=== PATIENT | male | born 1940 | race Caucasian/White ===

== ENCOUNTER 2018-08-27 13:36 | Emergency (ER) | payer BC, MEDICARE ==
[2018-08-27] MEDS ORDERED: Diph,Pert(Acell),Tet Vac 0.5 ML SYR IM ONE (14:17)
--- NOTE | 2018-08-27 14:19 | Emergency Department Record ---
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 and some neck pain and billateral knee pain and abrasions and bilaterat hand abrasions and left chest wall pain MD Complaint: Fall Onset/Timin -: Hour(s) Fall From: Standing When Fall Occurred: 1 hour PRIVATE INVESTIGATOR Fall Witnessed: Yes, by family, Yes, by bystander Place Fall Occurred: Street Loss of Consciousness: None Prolonged Down Time?: No Symptoms Prior to Fall: None Severity: Mild Severity scale (1-10): 5 Quality: Aching - [place] Coma Scale Eye Response: (4) Open spontaneously Motor Response: (6) Obeys commands Verbal Response: (5) Oriented [place] Total: 15 - Related Data Home Medications Medication Instructions Recorded Confirmed Last Taken Carbidopa/Levodopa 25Mg/100Mg 1 each PO TID 08/27/18 08/27/18 1 Day Ago [Sinemet] ~08/26/18 Furosemide [Lasix] 40 mg PO BID 08/27/18 08/27/18 1 Day Ago ~08/26/18 Potassium Chloride 10 meq PO BID 08/27/18 08/27/18 1 Day Ago ~08/26/18 Terazosin HCl 2 mg PO DAILY 08/27/18 08/27/18 1 Day Ago ~08/26/18 Allergies Allergy/AdvReac Type Severity Reaction Status Date / Time No Known Drug Allergies Allergy Verified 08/27/18 13:57 Travel Screening - Travel/Exposure Within Last 30 Days Have you traveled within the last 30 days?: No - Travel/Exposure Within Last Year Have you traveled outside the [place] in the last year?: No - Additonal Travel Details Have you been exposed to anyone with a communicable illness?: No - Travel Symptoms Symptom Screening: None Review of Systems Reviewed: No additional complaints except as noted below Constitutional: Reports: As per HPI. Denies: Chills, Fever, Malaise, Night sweats, Weakness, Weight change Eyes: Reports: As per HPI. Denies: Eye discharge, Eye pain, Photophobia, Vision change ENT: Reports: As per HPI. Denies: Congestion, Dental pain, Ear pain, Epistaxis , Hearing loss, Throat pain Respiratory: Reports: As per HPI. Denies: Cough, Dyspnea, Hemoptysis, Stridor, Wheezes Cardiovascular: Reports: As per HPI. Denies: Arrhythmia, Chest pain, Dyspnea on exertion, Edema, Murmurs, Orthopnea, Palpitations, Paroxysmal nocturnal dyspnea, Rheumatic Fever, Syncope Endocrine: Reports: As per HPI. Denies: Fatigue, Heat or cold intolerance, Polydipsia, Polyuria Gastrointestinal: Reports: As per HPI. Denies: Abdominal pain, Constipation, Diarrhea, Hematemesis, Hematochezia, Melena, Nausea, Vomiting Genitourinary: Reports: As per HPI. Denies: Dysuria, Frequency, Hematuria, Incontinence, Retention, Testicular pain, Testicular mass, Urgency Musculoskeletal: Reports: As per HPI, Other (multiple bruisies). Denies: Arthralgia, Back pain, Gout, Joint swelling, Myalgia, Neck pain Skin: Reports: As per HPI. Denies: Bruising, Change in color, Change in hair/ nails, Lesions, Pruritus, Rash Neurological: Reports: As per HPI. Denies: Abnormal gait, Confusion, Headache, Numbness, Paresthesias, Seizure, Tingling, Tremors, Vertigo, Weakness Psychiatric: Reports: As per HPI. Denies: Anxiety, Auditory hallucinations, Depression, Homicidal thoughts, Suicidal thoughts, Visual hallucinations Hematological/Lymphatic: Reports: As per HPI. Denies: Anemia, Blood Clots, Easy bleeding, Easy bruising, Swollen glands Past Medical History - SOCIAL HISTORY Smoking Status: Never smoker Alcohol Use: None Drug Use: None - RESPIRATORY Hx Respiratory Disorders: No - CARDIOVASCULAR Hx Cardio Disorders: Yes Hx Hypertension: Yes - NEURO Hx Neuro Disorders: No - GI Hx GI Disorders: No - Hx Genitourinary Disorders: Yes Hx Kidney Stones: Yes (hx) - ENDOCRINE Hx Endocrine Disorders: No - MUSCULOSKELETAL Hx Musculoskeletal Disorders: No - PSYCH Hx Psych Problems: No - HEMATOLOGY/ONCOLOGY Hx Hematology/Oncology Disorders: No Family Medical History Any Significant Family History?: Yes Hx Heart Disease: Father Hx HTN: Mother Physical Exam - General General Appearance: Alert, Oriented x3, Cooperative, No acute distress - Head Head exam: Other (large hematoma of the left forehead area) - Eye Eye exam: Normal appearance, PERRL Pupils: Normal accommodation - ENT ENT exam: Normal exam, Mucous membranes moist, Normal external ear exam, Normal orophraynx, TM's normal bilaterally Ear exam: Normal external inspection. negative: External canal tenderness Nasal Exam: Normal inspection. negative: Discharge, Sinus tenderness Mouth exam: Normal external inspection, Tongue normal Teeth exam: Normal inspection. negative: Dental caries Throat exam: Normal inspection. negative: Tonsillar erythema, Tonsillar exudate - Neck Neck exam: Normal inspection, Full ROM. negative: Tenderness - Respiratory Respiratory exam: Normal lung sounds bilaterally. negative: Respiratory distress - Cardiovascular Cardiovascular Exam: Regular rate, Normal rhythm, Normal heart sounds - GI/Abdominal GI/Abdominal exam: Soft, Normal bowel sounds. negative: Tenderness - Rectal Rectal exam: Deferred - exam: Deferred - Extremities Extremities exam: Normal inspection, Full ROM, Normal capillary refill, Tenderness (hands abrasions), Other (abrasions of both knees) - Back Back exam: Reports: Normal inspection, Full ROM. Denies: Muscle spasm, Rash noted, Tenderness - Neurological Neurological exam: Alert, Normal gait, Oriented X3, Reflexes normal - Psychiatric Psychiatric exam: Normal affect, Normal mood - Skin Skin exam: Dry, Intact, Normal color, Warm Course Vital Signs 08/27/18 13:49 Temperature 97.4 F L Pulse Rate 73 Respiratory 20 Rate Blood Pressure 186/121 Pulse Ox 96 Medical Decision Making - Data Complexity MDM Data: X-Ray Ordered and/or Reviewed (no fractures seen chest ,hands of necks and CT head abd neck no acute changes and right wrist scapphoid space widened ) - Lab Data Result diagrams: 08/27/18 14:25 08/27/18 14:25 Disposition Clinical Impression: Multiple contusions Right wrist injury Qualifiers: Encounter type: initial encounter Qualified Code(s): S69.91XA - Unspecified injury of right wrist, hand and finger(s), initial encounter Minor head injury Qualifiers: Encounter type: initial encounter Qualified Code(s): S09.90XA - Unspecified injury of head, initial encounter Disposition: Home, Self-Care Condition: (1) Good Instructions: Fall Prevention for Older Adults (ED), Head Injury (ED), Contusion in Adults (ED) Additional Instructions: follow up with family DR in 5 days ice to bruises tylenol or ibuprofen every 4-6 hours Forms: Patient Portal Access Time of Disposition: 16:04 Quality - Quality Measures Quality Measures: N/A - Blood Pressure Screening Does Patient Have Any of the Following: No, Active Dx of HTN Blood Pressure Classification: Hypertensive Reading Systolic Measurement: 186 Diastolic Measurement: 121 Screening for High Blood Pressure: Patient Exclusion, Hx of HTN [[id number]]
[2018-08-27 14:31] LABS: BASO % 0.1 % (0-6); EOS % 0.8 % (0-6); GRAN % 78.9 % (47-80); HEMATOCRIT 45.9 % (42.0-52.0); HEMOGLOBIN 15.3 gm/dl (14.0-18.0); LYMPH % 12.6 % (16-45); MEAN CELL VOLUME 95.2 fl (81-97); MEAN CORPUSCULAR HEMOGLOBIN 31.7 pg (27-33); MEAN CORPUSCULAR HGB CONC 33.3 g/dl (32-36); MEAN PLATELET VOLUME 10.2 fl (7.4-10.4); MONO % 7.6 % (0-9); PLATELET COUNT 150 K/uL (130-400); RED BLOOD COUNT 4.82 M/uL (4.40-5.70); WHITE BLOOD COUNT W/O DIFF 8.7 K/uL (4.2-12.2)
[2018-08-27 14:40] LABS: BLOOD UREA NITROGEN 17 mg/dL (8-23); CREATININE 0.6 mg/dL (0.7-1.2); EST GLOMERULAR FILTRATION RATE > 60 mL/min
[2018-08-27 14:43] LABS: GLUCOSE,RANDOM 111 mg/dL (74-109)
--- NOTE | 2018-08-31 05:32 | RADIOLOGY REPORT ---
DATE: 08/27/2018 at 1519. EXAM: CHEST, TWO VIEWS. HISTORY: Fall. TECHNIQUE: Upright AP and lateral views of the chest. COMPARISON: None. FINDINGS: The frontal view is obtained with the patient in a lordotic position. The heart projects mildly enlarged. No gross pulmonary venous hypertension is seen given positioning. The thoracic aorta is tortuous and atherosclerotic. No confluent airspace opacity is identified, nor is there costophrenic angle blunting or pneumothorax. There are degenerative changes scattered throughout the visualized spine and shoulder girdles. IMPRESSION: CARDIOMEGALY WITHOUT GROSS PULMONARY VENOUS HYPERTENSION. NO EVIDENCE OF AN ACUTE PULMONARY PROCESS. Job Number: [id number] [facility]
--- NOTE | 2018-08-31 05:37 | CT SCAN REPORT ---
EXAM: CT OF THE BRAIN WITHOUT CONTRAST HISTORY: FALL HITTING FOREHEAD TWO HOURS AGO. TECHNIQUE: Routine noncontrast CT of the brain was obtained. Comparison: No prior imaging of the brain available for comparison. Same day noncontrast CT of the cervical spine. FINDINGS: The subarachnoid spaces are mildly to moderately dilated consistent with generalized atrophy. The ventricles are not enlarged. Bilateral basal ganglia calcification is present. Mild to moderate periventricular and subcortical white matter lucencies are scattered in each cerebral hemisphere most pronounced in the frontal and parietal lobes. These are nonspecific, but likely areas of chronic small vessel ischemia. No other area of abnormally increased or decreased attenuation is noted throughout the brain substance. No abnormal extraaxial fluid collection is seen nor is there skull fracture identified. There is a moderate sized left periorbital/supraorbital soft tissue hematoma measuring 2.1 cm in thickness and 7 cm in diameter. The visualized paranasal sinuses and mastoid air cells are clear. The ocular globes are intact, symmetrically positioned. Post cataract surgery changes are noted bilaterally. The retrobulbar fat is clear. The optic nerves and extraocular muscles are symmetric and normal in appearance. IMPRESSION: 1. NO EVIDENCE OF ACUTE MAJOR VESSEL INFARCT, INTRACRANIAL HEMORRHAGE, MASS NOR SKULL FRACTURE. 2. GENERALIZED CEREBRAL AND CEREBELLAR ATROPHY. WHITE MATTER LUCENCIES IN EACH CEREBRAL HEMISPHERE ARE NONSPECIFIC THOUGH LIKELY THE RESULT OF CHRONIC MICROVASCULAR ISCHEMIA. 3. MODERATE SIZED LEFT ANTERIOR FRONTAL SCALP HEMATOMA WITH EXTENSION OF SOFT TISSUE SWELLING INTO THE LEFT PERIORBITAL REGION. 4. NOT MENTIONED ABOVE IS POSSIBLE AGE INDETERMINATE FRACTURE DEFORMITY OF THE LEFT NASAL BONE. JOB NUMBER: [id number] [facility]
--- NOTE | 2018-08-31 05:44 | CT SCAN REPORT ---
EXAM: CT OF THE CERVICAL SPINE WITHOUT CONTRAST HISTORY: FALL HITTING FOREHEAD. TECHNIQUE: Thin collimation helical CT examination of the cervical spine was performed in the axial plane without intravenous contrast. Coronal and sagittal reformatted images are generated and reviewed. Comparison: No prior imaging of the cervical spine available for comparison. Same day noncontrast CT of the brain. FINDINGS: There is normal bone mineralization. No acute fracture, destructive bone lesion, or prevertebral soft tissue swelling is seen though evaluation at the lower levels is mildly limited by increased image noise due to body habitus. Moderate hypertrophic degenerative changes of the atlantodental joint. Mild multilevel degenerative disk/degenerative end plate changes scattered throughout the cervical spine and visualized upper thoracic spine. No gross osseous cervical spinal stenosis is seen though there is possible mild central canal stenosis at the mid cervical levels due to congenital canal narrowing and mild disk bulging/end plate spurring. Mild to moderate multilevel bilateral facet arthropathy is present. There is mild to moderate multilevel bilateral neural foraminal narrowing due to uncovertebral joint and facet joint spurring most pronounced at the mid levels. There is mild atherosclerotic calcification of the carotid bifurcations. No suspicious cervical mass nor adenopathy. Mild biapical lung scarring is suspected. IMPRESSION: 1. NO ACUTE FRACTURE, SUBLUXATION, OR PREVERTEBRAL SOFT TISSUE SWELLING IDENTIFIED. 2. MILD TO MODERATE MULTILEVEL DEGENERATIVE CHANGES ASSOCIATED WITH PROBABLE BORDERLINE TO MILD CENTRAL CANAL STENOSIS AT THE MID CERVICAL LEVELS WELL MULTILEVEL BILATERAL NEURAL FORAMINAL NARROWING. JOB NUMBER: [id number] [facility]
--- NOTE | 2018-08-31 05:47 | RADIOLOGY REPORT ---
DATE: 08/27/2018 at 1516. EXAM: LEFT HAND, THREE VIEWS. HISTORY: PAIN POST FALL. TECHNIQUE: THREE VIEWS OF THE LEFT HAND. COMPARISON: Same-day three views of the right hand. ENCOUNTER: Initial. FINDINGS: There is normal bone mineralization. No acute fracture, dislocation , or destructive bone lesion is seen. Osteoarthritic changes are scattered throughout the hand and lateral aspect of the wrist. These are most pronounced in the following locations where they are moderate to advanced: Second, third, and fifth proximal interphalangeal joints; first carpometacarpal joint. No associated armond-articular erosion. No focal soft tissue abnormality. IMPRESSION: 1. NO ACUTE FRACTURE NOR DISLOCATION. 2. DIFFUSE OSTEOARTHRITIC CHANGES. Job Number: [id number] [facility]
--- NOTE | 2018-08-31 05:56 | RADIOLOGY REPORT ---
DATE: 08/27/2018 at 1509. EXAM: RIGHT HAND, THREE VIEWS. HISTORY: PAIN POST FALL. TECHNIQUE: THREE VIEWS OF THE RIGHT HAND. COMPARISON: Same-day three views of the left hand. ENCOUNTER: Initial. FINDINGS: There is normal bone mineralization. No acute fracture nor dislocation is identified. The scapholunate joint space appears mildly widened consistent with age-indeterminate scapholunate ligament injury. This may be chronic. There are osteoarthritic changes scattered throughout the hand and lateral aspect of the wrist. These are most pronounced in the second, third, and fifth proximal interphalangeal joints as well as the first carpometacarpal joint where the changes are moderate. No periarticular erosion. Small, chronic -appearing soft tissue calcifications are noted adjacent to the distal aspect of the first proximal phalanx, the ulnar styloid, and lateral to the first carpometacarpal joint. IMPRESSION: 1. NO ACUTE FRACTURE NOR DISLOCATION. 2. WIDENING OF THE SCAPHOLUNATE JOINT SPACE CONSISTENT WITH AGE-INDETERMINATE SCAPHOLUNATE LIGAMENT TEAR. 3. OSTEOARTHRITIC CHANGES SCATTERED THROUGHOUT THE HAND AND WRIST. BENIGN SOFT TISSUE CALCIFICATIONS SCATTERED IN THE WRIST AND HAND. Job Number: [id number] [facility]
--- NOTE | 2018-08-31 06:02 | RADIOLOGY REPORT ---
DATE: 08/27/2018 at 1514. EXAM: LEFT KNEE, THREE VIEWS. HISTORY: PAIN POST FALL. TECHNIQUE: AP, lateral, and sunrise views are obtained. COMPARISON: Same-day radiographic examination of the right knee. ENCOUNTER: Initial. FINDINGS: There is normal bone mineralization. Total knee arthroplasty changes are identified with the metallic prosthetic components appearing well seated. No convincing fracture nor dislocation. Evaluation of the patellofemoral joint space is, however, limited by suboptimal position. No gross joint effusion. No suspicious focal soft tissue abnormality. IMPRESSION: TOTAL LEFT KNEE ARTHROPLASTY CHANGES. NO DEFINITE ACUTE FRACTURE NOR DISLOCATION. Job Number: [id number] [facility]
--- NOTE | 2018-08-31 06:10 | RADIOLOGY REPORT ---
DATE: 08/27/2018 at 1511. EXAM: RIGHT KNEE, THREE VIEWS. HISTORY: PAIN POST FALL. TECHNIQUE: AP, lateral, and sunrise views are obtained. COMPARISON: Same-day two-views of the left knee. ENCOUNTER: Initial. FINDINGS: There is normal bone mineralization. Total right knee arthroplasty changes are identified. The metallic prosthetic components appear well seated. No complicating fracture or dislocation identified. No joint effusion. No suspicious focal soft tissue abnormality. Benign soft tissue calcification is noted within the mid aspect of the lower leg. IMPRESSION: TOTAL RIGHT KNEE ARTHROPLASTY CHANGES. NO EVIDENCE OF ACUTE FRACTURE, DISLOCATION, NOR JOINT EFFUSION. Job Number: [id number] [facility]
== END 2018-08-27 16:26 | disposition home or self-care (01) ==
LOC: ER 13:36
DX: S00.83XA Contusion of other part of head, initial encounter (principal); S69.91XA Unspecified injury of right wrist, hand and finger(s), initial encounter; S09.90XA Unspecified injury of head, initial encounter; S80.212A Abrasion, left knee, initial encounter; S80.211A Abrasion, right knee, initial encounter; S60.512A Abrasion of left hand, initial encounter; S60.511A Abrasion of right hand, initial encounter; R07.89 Other chest pain; W19.XXXA Unspecified fall, initial encounter; Y92.410 Unspecified street and highway as the place of occurrence of the external cause; I10 Essential (primary) hypertension
CPT/HCPCS: 70450; 71046; 72125; 80048; 85025; 90715; 96372; 99284